=== PATIENT | female | born 1955 | race Caucasian/White ===

== ENCOUNTER 2022-03-10 07:59 | Outpatient (CLI) | payer OTHER, SELFPAY ==
--- NOTE | ~2022-03-10 | MM_ITS ---
EXAMINATION: MM screening lisa BI w adamaris HISTORY: Screening mammogram TECHNIQUE: Craniocaudal and mediolateral oblique 3-D tomosynthesis images were obtained and synthetic 2-D images were generated. CAD analysis was submitted and interpreted. COMPARISON: 07/03/2019 bilateral screening mammogram BREAST PARENCHYMAL COMPOSITION: The breasts are almost entirely fatty. FINDINGS: Occasional bilateral benign calcifications. There is no evidence of suspicious mass, calcif ication, or architectural distortion to suggest malignancy in either breast. There has been no suspic ious interval change. IMPRESSION: 1. No mammographic evidence of malignancy. 2. Recommend routine screening mammography in one year. BI-RADS Category 1: Negative Reviewed, dictated and finalized at location A.
== END 2022-03-10 08:00 | disposition home or self-care (01) ==
LOC: ANHIMG 08:04
DX: Z12.31 Encounter for screening mammogram for malignant neoplasm of breast (principal)
CPT/HCPCS: 77063; 77067

== ENCOUNTER 2022-08-23 10:01 | Outpatient (CLI) | payer MEDICARE, SELFPAY ==
--- NOTE | ~2022-08-23 | DEXA_ITS ---
Bone Density Report Name: KESHAWN WILSON Age: 67 Sex: Female Ethnicity: White Date of : 1955 Indication: postmenopausal; screening for osteoporosis; Referring Provider: UNKNOWN, UNKNOWN Study: Bone densitometry was performed. Exam Date: August 23, 2022 Accession number: [id number] Bone Density: Region BMD T-score Z-score Classification AP Spine(L1-L4) 1.014 -0.3 1.6 Normal Femoral Neck (Left) 0.739 -1.0 0.6 Normal Total Hip (Left) 0.985 0.4 1.7 Normal Femoral Neck (Right) 0.779 -0.6 1.0 Normal Total Hip (Right) 0.973 0.3 1.6 Normal Total Hip Mean 0.979 0.4 1.7 Normal World Health Organization criteria for BMD impression classify patients as: Normal (T-score at or above -1.0), Osteopenia (T-score between -1.0 and -2.5), or Osteoporosis (T-score at or below -2.5). 10-year Fracture Risk: FRAX not reported because: All T-scores for Spine Total, Hip Total, Femoral Neck at or above -1.0 Clinical Information Provided by Patient: Has used the following medications: Vitamin D, Multivitamin Patient maximum height was 65 Menopause Age: 53 No regular weight bearing exercise Drinks caffeinated beverages Onset of menses at age 12 Number of children 3 Impression: The patient has normal bone mass. Discussion: BONE DENSITY IS ABOVE THE MINIMUM DESIRABLE LEVEL AT ALL SKELETAL SITES TESTED. This patient?s bone mineral density is above the minimum desirable level (T-score -1.0 or better) at all sites measured. The patient should follow a healthful lifestyle (good nutrition with adequate calcium and vitamin D, and appropriate weight-bearing exercise). Follow-Up: Consider repeating this study in 5 years or sooner if there is some new clinical indication. Reported by: MARCUS on 08/23/2022 10:33:00 AM. Reviewed, dictated and finalized at location ATariq HULL
== END 2022-08-23 10:02 | disposition home or self-care (01) ==
LOC: ANHIMG 10:03
DX: Z78.0 Asymptomatic menopausal state (principal)
CPT/HCPCS: 77080

== ENCOUNTER 2025-02-25 09:49 | Outpatient (CLI) | payer MEDICARE, SELFPAY ==
--- NOTE | ~2025-02-25 | MM_ITS ---
EXAMINATION: MM screening lisa BI w adamaris HISTORY: Screening TECHNIQUE: Craniocaudal and mediolateral oblique 3-D tomosynthesis images were obtained and synthetic 2-D images were generated. CAD analysis was submitted and interpreted. COMPARISON: 03/10/2022 BREAST PARENCHYMAL COMPOSITION: Not Dense: The breasts are almost entirely fatty. FINDINGS: There is no evidence of suspicious mass, calcification, or architectural distortion to suggest malignancy. There has been no suspicious interval change. IMPRESSION: 1. No mammographic evidence of malignancy. Recommend routine screening mammography in one year. BI-RADS Category 2: Benign finding(s) Reviewed, dictated and finalized at location Q. IMPRESSION: 1. No mammographic evidence of malignancy. Recommend routine screening mammogra phy in one year. BI-RADS Category 2: Benign finding(s)
--- OUTSIDE RECORDS SUMMARY | 2025-02-25 10:52 | XMS_ITS | Clinical Summary ---
Author Organization [facility] Address [address] [place] [phone] Phone Care Team Providers Care Furnace Builder Name Role Phone Alfie Londono MD Primary Care Provider [phone] Allergies No known active allergies Medications cyclobenzaprine (FLEXERIL) 5 mg Tablet Take 0.5-1 Tablets (2.5-5 mg) by mouth 3 times daily as needed for Spasm. 30 Tablet 2 023 Active escitalopram oxalate (LEXAPRO) 20 mg tablet Take 1 Tablet (20 mg) by mouth daily. 100 Tablet 3 024 Active lisinopriL (PRINIVIL) 20 mg tablet Take 1 Tablet (20 mg) by mouth daily. 100 Tablet 3 024 Active ALPRAZolam (XANAX) 0.25 mg tabletIndications:Anxie ty state TAKE ONE-HALF TO ONE TABLET BY MOUTH NIGHTLY NEEDED FOR ANXIETY 10 Tablet 1 025 Active inclisiran (Leqvio) SyringeIndications:Fami lial hypercholesterolemia Inject 1.5 mL (284 mg) by subcutaneous injection once, then 3 months later, then every 6 months. 1.5 mL 3 025 Active Active Problems Problem Noted Date Diagnosed Date Familial hypercholesterolemia 02/10/2025 Mixed hyperlipidemia 02/13/2020 Assessment & Plan (02/19/2025 12:01 PM CDT): -Will need to follow up on how Leqvio can be provided. May require referral to the lipid clinic. Will reach out and get back to patient on next steps as we figure it out. HTN (hypertension), benign 02/13/2020 Assessment & Plan (02/19/2025 12:01 PM CDT): -Continue to monitor at home. -Report trends >140/80 Anxiety state 02/13/2020 Prediabetes 02/13/2020 Encounters Date Type Department Care Team Description 02/24/2025 External Device Data STL ABSTRACTION Provider, Abstract 02/23/2025 Orders Only [facility] [address] [place] [address] Alfie Londono MD Familial hypercholesterolemia (Primary Dx) 02/19/2025 Telephone [facility] [address] [place] [address] La Nena Hurst NP Blood Pressure Monitoring 02/17/2025 External Device Data STL ABSTRACTION Provider, Abstract 02/12/2025 Telephone [facility] [address] [place] [address] Sara Hunter Blood Pressure Monitoring 02/10/2025 11:00 AM CDT Office Visit [facility] [address] [place] [address] Alfie Londono MD Medicare annual wellness visit, subsequent (Primary Dx); Familial hypercholesterolemia; HTN (hypertension), benign; Elevated serum creatinine; Post-menopausal; Breast cancer screening by mammogram 02/10/2025 Telephone [facility] [address] [place] [address] Sonali Ha, RN Follow Up 01/14/2025 External Device Data STL ABSTRACTION Provider, Abstract 01/13/2025 External Device Data STL ABSTRACTION Provider, Abstract 12/24/2024 External Device Data STL ABSTRACTION Provider, Abstract 12/24/2024 External Device Data STL ABSTRACTION Provider, Abstract 12/23/2024 External Device Data STL ABSTRACTION Provider, Abstract 12/02/2024 External Device Data STL ABSTRACTION Provider, Abstract from Last 3 Months Immunizations Immunization Administration Dates Next Due (PFIZER)(12 YR UP) COVID-19 VACCINE - EMERGENCY USE AUTHORIZATION, MRNA, [id number](PF) 30 MCG/0.3 ML IM SUSP 03/22/2021,08/21/2020,07/31/2020 (PNEUMOVAX 23)(50 YRS UP) PN EUMOCOCCAL POLYSACCHARIDE (PPV23) 0.5 ML, IM 09/12/2021 INFLUENZA VACCINE HIGH DOSE QUADRIVALENT 65 YR UP PF IM 02/14/2022 Family History Medical History Relation Name Comments High Cholesterol Brother Reilly dixon Cholesterol and blood pressure Ovarian Cancer Mother Franca High Cholesterol Sister Monica Colon Cancer Neg Hx Relation Name Status Comments Brother Reilly dixon Mother Franca Sister Monica Social History Tobacco Use Types Packs/Day Years Used Date Smoking Tobacco: Former Cigarettes 2 10 0 06/11/1967 - 06/11/1977 Passive Smoke Exposure: Never Smokeless Tobacco: Never Tobacco Cessation:Counseling Given: No Alcohol Use Standard Drinks/Week Comments Yes 2 (1 standard drink = 0.6 oz pur e alcohol) seldom Financial Resource Strain Answer Date R ecorded How hard is it for you to pa y for the very basics like food, housing, medical care, and heating? Not hard at all 09/08/2022 Food Insecurity Answer Date Recorded In the past 12 months, have you worried that your food would run out before you had money to buy more? Never true 09/08/2022 In the past 12 months, did y ou run out of food and didn't have money to buy more? Never true 09/08/2022 Transportation Needs Answer Date Record ed In the past 12 months, has l ack of transportation kept you from medical appointments or from getting medications? No 09/08/2022 Lack of Transportation (Non-Medical) Not on file 09/08/2022 Feeling Safe Answer Date Recorded Are you in a relationship wi th someone who hurts you emotionally and/or physically? No 08/05/2024 Comments No Sex and Gender Information Value Date Recorded Sex Assigned at Not on file Legal Sex Female 11:18 AM CDT Gender Identity Not on file Sexual Orientation Not on file Last Filed Vital Signs Vital Sign Reading Time Taken Comments Blood Pressure 120/80 02/19/2025 11:23 AM CDT Pulse 69 02/10/2025 11:08 AM CDT Temperature 36.4 C (97.5 F) 02/10/2025 11:08 AM CDT Respiratory Rate 18 08/05/2024 7:54 AM STRATEGIC ACCOUNT DIRECTOR Oxygen Saturation 96% 02/10/2025 11:08 AM CDT Inhaled Oxygen Concentration - - Weight 76.7 kg (169 lb) 02/10/2025 11:08 AM CDT Height 152.4 cm (5') 02/10/2025 11:08 AM CDT Body Mass Index 33.01 02/10/2025 11:08 AM CDT Plan of Treatment Upcoming Encounters Date Type Department Care Team (Late st Contact Info) Description 02/11/2026 11:00 AM CDT Office Visit [facility] [place] [address] [place] [address] Alfie Londono MD [address] [facility] [address] [place] [address] Health Maintenance Due Date Last Done Comments DTAP/TDAP/TD VACCINES (1 - Tdap) 1974 FIT-DNA Q 3 years 2000 FIT/FOBT Q 1 year 2000 Flex Sig/CT Colonography Q 5 years 2000 ZOSTER VACCINE (1 of 2) 2005 BREAST CANCER SCREENING 03/15/2019 03/15/20 18, 03/15/2018, 01/12/2017, Additional history exists OSTEOPOROSIS SCREENING 2020 PNEUMOCOCCAL VACCINE 50+ YEA RS (2 of 2 - PCV) 09/12/2022 09/12/2021 COVID-19 Vaccine (4 - 2024-2 6 season) 2025 03/22/2021, 08/21/2020, 07/31/2020 Pre-Diabetes and Diabetes Screening 02/06/2028 02/05/2025, 12/14/2021, 08/20/2020 COLORECTAL SCREENING 08/05/2029 08/05/2024, 08/05/2024, 07/31/2022, Additional history exists Colorectal Cancer Screening 08/05/2029 RSV VACCINE (60+ or ) (1 - 1-dose 75+ series) 2030 Medicare Advantage ([place]) Preventative Visit/Annual Wellness Visit Completed 02/10/2025, 02/12/2024, 09/15/2022, Additional history exists INFLUENZA VACCINE Completed 02/11/2025, 02/14/2022 Goals Goal Patient Goal Type Associated Problems Recent Progress Patient-Stated? Author HYPERTENSIO N CARE PLAN GOAL Care Plan DANY MYC HYPERTENSION CARE PLAN PROBLEM No Sonali Ha RN Medical Devices Implanted Type Area Phonograph Mechanic Device Identifier Shelf Expiration Date Model / Serial / Lot Clip Endo Resolution 360 235cm [id number] - [id number] Implanted:Qty: 1 on 07/31/2022 by Anju Lu DO at [facility] Clip N/A: Perianal [employer]OS[employer] 04/11/2025 [id number] / / Procedures Procedure Name Priority Date/Time Associated Diagnosis Comments LIPID PANEL Routine 02/05/2025 7:46 AM CDT HTN (hypertension), benign Mixed hyperlipidemia HEMOGLOBIN A1C Routine 02/05/2025 7:46 AM CDT HTN (hypertension), benign Prediabetes COMPREHENSIVE METABOLIC PANEL Routine 02/05/2025 7:46 AM CDT Medicare annual wellness visit, subsequent HTN (hypertension), benign CBC WITH DIFFERENTIAL Routine 02/05/2025 7:46 AM CDT Medicare annual wellness visit, subsequent COLONOSCOPY REPORT 08/05/2024 7: 39 AM STRATEGIC ACCOUNT DIRECTOR from Last 3 Months or Most Recently Relevant to Health Maintenance Results * CBC WITH DIFFERENTIAL (02/05/2025 7:46 AM CDT) WBC 7.2 3.8 - 10.8 Thousand/u L [facility] RBC 4.21 3.80 - 5.10 Million/uL [facility] HEMOGLOBIN 13.7 11.7 - 15.5 g/dL [facility] HEMATOCRIT 42.0 35.0 - 45.0 % [facility] MCV 99.8 80.0 - 100.0 fL [facility] MCH 32.5 27.0 - 33.0 pg [facility] MCHC 32.6 32.0 - 36.0 g/dL [facility] Comment: For adults, a slight decrease in the calculated MCHC value (in the range of 30 to 32 g/dL) is most likely not clinically significant; however, it should be interpreted with caution in correlation with other red cell parameters and the patient's clinical condition. RDW 12.3 11.0 - 15.0 % [facility] PLATELETS 268 140 - 400 Thousand/u L [facility] MPV 10.4 7.5 - 12.5 fL [facility] NEUTROPHIL ABSOLUTE 4,536 1,500 - 7,800 cells/uL [facility] LYMPHOCYTE ABSOLUTE 1,951 850 - 3,900 cells/uL [facility] MONOCYTE ABSOLUTE 482 200 - 950 cells/uL [facility] EOSINOPHIL ABSOLUTE 180 15 - 500 cells/uL [facility] BASOPHILS ABSOLUTE 50 0 - 200 cells/uL [facility] NEUTROPHIL 63 % [facility] LYMPHOCYTES 27.1 % [facility] MONOCYTE 6.7 % [facility] EOSINOPHILS 2.5 % [facility] BASOPHILS 0.7 % [facility] Comment: Test Performed at: [facility] [address] [place] [id number] Jorge Kathleen MD Blood 02/05/2025 7:46 AM CDT 02/05/2025 7:46 AM CDT us Felicia E Bates ANP HEMATOLOGY ORDERABLES Final R esult [facility] [phone] [facility] [address] * (ABNORMAL) HEMOGLOBIN A1C (02/05/2025 7:46 AM CDT) HEMOGLOBIN A1C 5.9(H) <5.7 % of total Hgb [facility] Comment: For someone without known diabetes, a hemoglobin A1c value between 5.7% and 6.4% is consistent with prediabetes and should be confirmed with a follow-up test. For someone with known diabetes, a value <7% indicates that their diabetes is well controlled. A1c targets should be individualized based on duration of diabetes, age, comorbid conditions, and other considerations. This assay result is consistent with an increased risk of diabetes. Currently, no consensus exists regarding use of hemoglobin A1c for diagnosis of diabetes for children. ESTIMATED AVERAGE GLUCOSE (MG/DL) 123 mg/dL [facility] ESTIMATED AVERAGE GLUCOSE (MMOL/L) 6.8 mmol/L [facility] Comment: Test Performed at: [facility] [address] [address] [place] [address] Jorge Kathleen Blood 02/05/2025 7:46 AM CDT 02/05/2025 7:46 AM CDT Felicia Yoo ANP CHEMISTRY ORDERABLES Final Re sult [facility] [phone] [facility] [address] [address] [place] [address] * (ABNORMAL) LIPID PANEL (02/05/2025 7:46 AM CDT) CHOLESTEROL 349(H) <200 mg/dL [facility] [place] HDL 59 > OR = 50 mg/dL [facility] [place] TRIGLYCERIDE 187(H) <150 mg/dL [facility] LDL CALCULATED 254(H) mg/dL (calc) [facility] Comment: LDL-C levels > or = 190 mg/dL may indicate familial hypercholesterolemia (FH). Clinical assessment and measurement of blood lipid levels should be considered for all first degree relatives of patients with an FH diagnosis. LDL Cholesterol (LDL-C) levels > or = 300 mg/dL may indicate homozygous familial hypercholesterolemia (HoFH). Untreated, these extremely high LDL-C levels can result in premature CV events and mortality. Patients should be identified early and provided appropriate interventions to reduce the cumulative LDL-C burden from . For questions about testing for familial hypercholesterolemia, please call [facility] Client Services at .[email or web address].INFO. [place] Pa, et al. J National Lipid Association Recommendations for Patient-Centered Management of Dyslipidemia: Part 1 Journal of Clinical Lipidology 2015;9(2), 129-169. Liliana Bain et al. (2014). Homozygous familial hypercholesterolaemia: new insights and guidance for clinicians to improve detection and clinical management. Heart Journal, 35(32), 9846-6004. Reference range: <100 Desirable range <100 mg/dL for primary prevention; <70 mg/dL for patients with CHD or diabetic patients with > or = 2 CHD risk factors. LDL-C is now calculated using the Stephen-Alejandro calculation, which is a validated novel method providing better accuracy than the Friedewald equation in the estimation of LDL-C. Stephen SS et al. NIA. 2013;310(19): 5007-9521 (http://education.[employer]or[employer]/faq/JSR732) CHOL/HDL RATIO 5.9(H) <5.0 (calc) [facility] NON-HDL CHOLESTEROL 290(H) <130 mg/dL (calc) [facility] Comment: Non-HDL level > or = 220 is very high and may indicate genetic familial hypercholesterolemia (FH). Clinical assessment and measurement of blood lipid levels should be considered for all first-degree relatives of patients with an FH diagnosis. For patients with diabetes plus 1 major ASCVD risk factor, treating to a non-HDL-C goal of <100 mg/dL (LDL-C of <70 mg/dL) is considered a therapeutic option. Test Performed at: [facility] [address] [facility] [place] [address] Jorge Kathleen MD Blood 02/05/2025 7:46 AM CDT 02/05/2025 7:46 AM CDT us Felicia Yoo ANP CHEMISTRY ORDERABLES Final Re sult [facility] [phone] [facility] [address] [facility] [place] [address] * (ABNORMAL) COMPREHENSIVE METABOLIC PANEL (02/05/2025 7:46 AM CDT) GLUCOSE 117(H) 65 - 99 mg/dL [facility] Comment: Fasting reference interval For someone without known diabetes, a glucose value between 100 and 125 mg/dL is consistent with prediabetes and should be confirmed with a follow-up test. BUN 15 7 - 25 mg/dL [facility] CREATININE 1.06(H) 0.50 - 1.05 mg/dL [facility] GFR 57(L) > OR = 60 mL/min/1.7 3m2 [facility] BUN/CREAT RATIO 14 6 - 22 (calc) [facility] SODIUM 137 135 - 146 mmol/L [facility] POTASSIUM 5.3 3.5 - 5.3 mmol/L [facility] CHLORIDE 101 98 - 110 mmol/L [facility] CO2 31 20 - 32 mmol/L [facility] CALCIUM 10.0 8.6 - 10.4 mg/dL [facility] TOTAL PROTEIN 7.0 6.1 - 8.1 g/dL [facility] ALBUMIN 4.5 3.6 - 5.1 g/dL [facility] GLOBULIN 2.5 1.9 - 3.7 g/dL (calc) [facility] ALBUMIN/GLOBULIN RATIO 1.8 1.0 - 2.5 (calc) [facility] BILIRUBIN TOTAL 0.4 0.2 - 1.2 mg/dL [facility] ALKALINE PHOSPHATASE 69 37 - 153 U/L [facility] AST 20 10 - 35 U/L [facility] ALT 20 6 - 29 U/L [facility] Comment: Test Performed at: [facility] [address] [id number] Jorge Kathleen MD Blood 02/05/2025 7:46 AM CDT 02/05/2025 7:46 AM CDT us Felicia E Bates ANP CHEMISTRY ORDERABLES Final Re sult [facility] [phone] [facility] [address] [phone] * COLONOSCOPY REPORT (08/05/2024 7:39 AM STRATEGIC ACCOUNT DIRECTOR) Narrative Procedure Note Anju Lu DO - 08/05/2024 7:38 AM CST [facility] Endoscopy Patient Name: Mary Lou Foote Procedure Date: 08/05/2024 Date of : 1955 Attending MD: Anju Lu DO, Procedure: Colonoscopy Indications: High risk colon cancer surveillance: Personal history of colonic polyps. Colonoscopy 2017 one hyperplastic polyp. Earlier colonoscopy with polyps, histology unknown. Last colonoscopy 07/2022 with four adenomas including one 13 mm. No known FH of CRC or advanced polyps. Providers: Anju Lu DO Referring MD: Alfie Londono Medicines: Monitored Anesthesia Care Complications: No immediate complications. Procedure: Informed consent was obtained for the procedure, including moderate sedation after risks were discussed. Based on the pre-procedure assessment, including review of the patient's medical history, medications, allergies, and review of systems, the patient was deemed to be an appropriate candidate for sedation. A timeout was performed. Continuous ECG monitoring, pulse oximetry, blood pressure monitoring, and direct observation were performed. The was introduced through the anus and advanced to the terminal ileum, with identification of the appendiceal orifice and IC valve. The colonoscopy was performed without difficulty. The patient tolerated the procedure well. The quality of the bowel preparation was good. The quality of the bowel preparation was evaluated using the BBPS ([place] Bowel Preparation Scale) with scores of: Right Colon = 3, Transverse Colon = 3 and Left Colon = 3 (entire mucosa seen well with no residual staining, small fragments of stool or opaque liquid). The total BBPS score equals 9. The terminal ileum, ileocecal valve, appendiceal orifice, and rectum were photographed. Estimated Blood Loss: Estimated blood loss was minimal. Findings: The terminal ileum appeared normal. A 6 mm polyp was found in the ascending colon. The polyp was semi-sessile. The polyp was removed with a cold snare. Resection and retrieval were complete. A medium post polypectomy scar was found at the hepatic flexure. The scar tissue was healthy in appearance. There was no evidence of the previous polyp. A 4 mm polyp was found in the transverse colon. The polyp was sessile. The polyp was removed with a cold snare. Resection and retrieval were complete. A 4 mm polyp was found in the descending colon. The polyp was sessile. The polyp was removed with a cold snare. Resection and retrieval were complete. Two sessile and semi-sessile polyps were found in the sigmoid colon. The polyps were 2 to 3 mm in size. The polyp was removed with a jumbo cold forceps. The polyp was removed with a cold snare. Resection and retrieval were complete. Scattered small-mouthed diverticula were found in the sigmoid colon and descending colon. Internal hemorrhoids were found during retroflexion. The hemorrhoids were small. The exam was otherwise without abnormality on direct and retroflexion views. Impression: - The examined portion of the ileum was normal. - One 6 mm polyp in the ascending colon, removed with a cold snare. Resected and retrieved. - Post-polypectomy scar at the hepatic flexure. - One 4 mm polyp in the transverse colon, removed with a cold snare. Resected and retrieved. - One 4 mm polyp in the descending colon, removed with a cold snare. Resected and retrieved. - Two 2 to 3 mm polyps in the sigmoid colon, removed with a cold snare and removed with a jumbo cold forceps. Resected and retrieved. - Diverticulosis in the sigmoid colon and in the descending colon. - Internal hemorrhoids. - The examination was otherwise normal on direct and retroflexion views. Recommendation: - Discharge patient to home. - High fiber diet. - Await pathology results. - Repeat colonoscopy for surveillance based on pathology results. - Return to primary care physician as previously scheduled. - Your pathology results typically return within 3-5 business days. You may receive an email/[facility] notification that results are back. However, this does not mean that the physician has reviewed them yet. It will typically take 5-7 business days for the physician to review the results. We will notify you of the results once the physician has had a chance to review them. If you have not received results from the physician's office within 10 business days from the procedure, then please contact us at that point. Anju Lu DO 08/05/2024 7:38:48 AM Number of Addenda: [address]; [place] [address] Anju Lu DO GI PROCEDURE ORDERABLES Final Re sult from Last 3 Months or Most Recently Relevant to Health Maintenance Additional Health Concerns Active Problems Noted Date Diagnosed Date DANY MYC HYPERTENSION CARE PLAN PROBLEM 5 Insurance [employer] PPO MCR Advance Directives For more information, please contact: [phone] * Full Code (Latest Code Status on File) Date Activated Date Inactivated Comments 08/05/2024 6:38 AM 08/05/2024 10:39 AM * Full Code Date Activated Date Inactivated Comments 07/31/2022 8:25 AM 07/31/2022 12:24 PM Care Teams Furnace Builder Relationship Specialty Start Date End Date Alfie Londono MD [address] [place], [address] [place] [address] PCP - General Internal Medicine 02/13/20
--- OUTSIDE RECORDS SUMMARY | 2025-02-25 10:52 | XMS_ITS | Clinical Summary ---
Author Organization [facility] Address [address] [place] [address] Care Team Providers Care Editor Farm [employer] Name Role Phone AngieAkshat cheng Tal DO Primary Care Provider [phone] Source Comments [facility],non-owned Affiliates and Associated Physician Practices is amultiple site organization consisting of ambulatory clinics and hospital sitesin [place], [place], [place] and [place]. This disclosure is being madepursuant to the Care Everywhere program and may not contain all information available regarding this patient. Last updated 18.[facility] Medications * Be aware that medications may not be up to date on this document. Alwaysverify current medications with the patient. ketoconazole (NIZORAL) 2 % cream 30 g 11 11/09/2016 Active ketoconazole (NIZORAL) 2 % shampoo 120 mL 3 08/30/2016 Active ALPRAZolam (XANAX) 0.25 MG tablet 07/06/2016 Active escitalopram (LEXAPRO) 20 MG tablet 07/05/2016 Active ibuprofen (MOTRIN) 200 MG tablet Take 200 mg by mouth q6h PRN (Pain). 08/30/2016 Active lisinopril (PRINIVIL; ZESTRIL) 20 MG tablet 05/30/2016 Active acetaminophen (TYLENOL) 500 MG tablet Take 500 mg by mouth q6h PRN (Pain). 08/30/2016 Active fluticasone (CUTIVATE) 0.005 % ointment 30 g 3 08/30/2016 Active Active Problems Problem Noted Date Diagnosed Date Seborrheic dermatitis 03/28/2017 Overview (09/10/2017): IMO regulatory upload 03/27 Family History Medical History Relation Name Comments Allergy (Severe) Neg Hx CVA Neg Hx Cancer Neg Hx Cancer - Breast Neg Hx Cancer - Skin, Melanoma Neg Hx Cancer - Skin, Non Melanoma Neg Hx Eczema Neg Hx Hemophilia Neg Hx Psoriasis Neg Hx Rashes/Skin Problems Neg Hx Social History Tobacco Use Types Packs/Day Years Used Date Smoking Tobacco: Former Smokeless Tobacco: Never Alcohol Use Standard Drinks/Week Comments Yes 0 (1 standard drink = 0.6 oz pur e alcohol) Comments Unknown Sex and Gender Information Value Date Recorded Sex Assigned at Not on file 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 Gender Identity Not on file Sexual Orientation Not on file Plan of Treatment Health Maintenance Due Date Last Done Comments BONE DENSITY TESTING 1955 COLOGUARD (AGES 45-75) - COL ON CA SCREENING 1955 COLON MONITORING 1955 COLONOSCOPY - COLON CA SCREENING 1955 CT COLONOGRAPHY - COLON CA SCREENING 1955 Colorectal Cancer Screening 1955 FIT - COLON CA SCREENING 1955 FLEX SIG - COLON CA SCREENING 1955 LIPID TESTING 1955 MAMMOGRAM 1955 HEPATITIS C SCREENING 05/26/1973 DTAP/TDAP/TD VACCINES (1 - Tdap) 1974 PNEUMOCOCCAL VACCINE 50+ (1 of 1 - PCV) 2005 ZOSTER VACCINE (1 of 2) 2005 DEPRESSION SCREENING 06/11/2024 COVID-19 VACCINE (1 - 2023-2 5 season) 2025 INFLUENZA VACCINE (#1) 2025 Respiratory Syncytial Virus (RSV) Vaccine Pt: or over 60 yrs (1 - 1-dose 75+ series) 2030 HEPATITIS B VACCINE Aged Out No longe r eligible based on patient's age to complete this topic HIB VACCINE Aged Out No longer eligi ble based on patient's age to complete this topic HPV VACCINE Aged Out No longer eligi ble based on patient's age to complete this topic MENINGOCOCCAL (Group B) VACC INE SHARED DECISION-MAKING Aged Out No longer eligibl e based on patient's age to complete this topic MENINGOCOCCAL GROUPS A/C/Y/W VACCINE Aged Out No longer eligible b ased on patient's age to complete this topic Care Teams Editor Farm Journal Relationship Specialty Start Date End Date Akshat Gore DO [facility] - General 08/08/16
--- OUTSIDE RECORDS SUMMARY | 2025-02-25 10:52 | XMS_ITS | Encounter Summary ---
Author Organization [facility] Address [address] [place] [address] Care Team Providers Care In Room Dining Server Name Role Phone Alfie Londono MD Primary Care Provider [phone] Encounter Details Date Type Department Care Team (Late st Contact Info) Description 02/24/2025 External Device Data [facility] ABSTRACTION Provider, Abstract NO ADDRESS ON FILE Social History Tobacco Use Types Packs/Day Years Used Date Smoking Tobacco: Former Cigarettes 2 10 0 06/11/1967 - 06/11/1977 Passive Smoke Exposure: Never Smokeless Tobacco: Never Alcohol Use Standard Drinks/Week Comments Yes 2 [...] on file Sexual Orientation Not on file documented as of this encounter Plan of Treatment Upcoming Encounters Date Type Department Care Team (Late st Contact Info) Description 02/11/2026 11:00 AM CDT Office Visit [facility] [place] [address] [place] [address] Alfie Londono MD [address] [place] [address] documented as of this encounter Goals Goal Patient Goal Type Associated Problems Recent Progress Patient-Stated? Author HYPERTENSIO N CARE PLAN GOAL Care Plan DANY MYC HYPERTENSION CARE PLAN PROBLEM No Sonali Ha RN documented as of this encounter Visit Diagnoses Not on filedocumented in this encounter Additional Health Concerns Active Problems Noted Date Diagnosed Date DANY MYC HYPERTENSION CARE PLAN PROBLEM 5 documented as of this encounter Care Teams In Room Dining Server Relationship Specialty Start Date End Date Alfie Londono MD [address] [place] [address] PCP - General Internal Medicine 02/13/20 documented as of this encounter
== END 2025-02-25 09:50 | disposition home or self-care (01) ==
DX: Z12.31 Encounter for screening mammogram for malignant neoplasm of breast (principal)
CPT/HCPCS: 77063; 77067